=== PATIENT | female | born 1980 | race Hispanic/Latino ===

== ENCOUNTER 2021-08-06 07:37 | Day surgery (SDC) | payer BC ==
[2021-07-31 11:53] LABS: Urine Appearance CLOUDY (Clear); Urine Bilirubin NEGATIVE (Negative); Urine Blood NEGATIVE (Negative); Urine Color YELLOW (Yellow); Urine Glucose NEGATIVE (Negative); Urine Protein NEGATIVE (Negative); Urine Specific Gravity 1.015 (1.005-1.030); Urine Urobilinogen 0.2 mg/dL (0.2-1.0)
[2021-07-31 11:54] LABS: Absolute Lymphocytes (CBC) 2.9 K/uL (0.7-4.9); Hematocrit 41.8 % (36.0-45.0); Lymphocytes % 35.1 % (15.3-44.8); MPV 8.3 fL (7.6-11.3); RBC Red Blood Cell Count 4.67 M/uL (3.86-4.86)
[2021-07-31 11:57] LABS: Urine Microscopic Reflex NO UMIC
[2021-08-06] MEDS ORDERED: SCOPOLAMINE HYDROBROMIDE PATCH TD ONE (07:56)
[2021-08-06] MEDS ORDERED: Ringers Lactate 1,000 ML IV ONE ×2 (07:57→11:43)
[2021-08-06] MEDS: CEFAZOLIN/SWI 2gm 2 GM/20 ML SYR ONE ×3 (08:44→11:20)
[2021-08-06] MEDS ORDERED: ACETAMINOPHEN 500 MG TAB ONE (09:12)
[2021-08-06] MEDS ORDERED: CELECOXIB 100 MG CAPSULE ONE (09:17)
[2021-08-06] MEDS ORDERED: KETAMINE HCL 500 MG/5 ML VIAL ONE (09:27)
[2021-08-06] MEDS ORDERED: propofoL 200 MG/20 ML VIAL IV ONE (09:27)
[2021-08-06] MEDS ORDERED: MIDAZOLAM HCL 2 MG/2 ML INJ ONE (09:27)
[2021-08-06] MEDS ORDERED: dexAMETHasone 10 MG/ML VIAL ONE (09:27)
[2021-08-06] MEDS ORDERED: LIDOCAINE 1% MPF 5 ML VIAL ONE (09:27)
[2021-08-06] MEDS ORDERED: ONDANSETRON 4 MG/2 ML VIAL ONE (09:28)
[2021-08-06] MEDS ORDERED: FENTANYL CITR 250 MCG/5 ML ONE (09:28)
[2021-08-06] MEDS ORDERED: ROCURONIUM 50 MG/5 ML VIAL IV ONE ×2 (09:28→12:19)
[2021-08-06] MEDS ORDERED: NA CHLORIDE 0.9% 2,000 ML ONE (10:01)
[2021-08-06] MEDS ORDERED: LIDOCAINE 1% W/EPI 1:100,000 MDV 20 ML VIAL ONE (10:01)
[2021-08-06] MEDS ORDERED: NA CHLORIDE 0.9% 50 ML ONE ×2 (10:02→13:05)
[2021-08-06] MEDS ORDERED: CEFAZOLIN SODIUM 1 GM/VIAL ONE (10:08)
[2021-08-06] MEDS: BUPIVACAINE 0.25% PF 10 ML VIAL ONE ×2 (11:37→11:44)
[2021-08-06] MEDS: VASOPRESSIN 20 UNIT/ML VIAL ONE ×3 (11:44→13:50)
[2021-08-06] MEDS ORDERED: Phenylephrine HCl 10 MG/ML 1 ML VIAL ONE (12:35)
[2021-08-06] MEDS ORDERED: ETOMIDATE 20 MG/10 ML VIAL IV ONE (12:40)
[2021-08-06] MEDS: Ringers Lactate 1,000 ML IV ONE ×4 (13:17→14:37)
[2021-08-06] MEDS ORDERED: FENTANYL CITR 100 MCG/2 ML ONE (13:36)
[2021-08-06] MEDS ORDERED: GLYCOPYRROLATE 0.2 MG/ML SYR ONE ×2 (14:31→14:35)
[2021-08-06] MEDS ORDERED: MORPHINE 10 MG/ML VIAL ONE (15:08)
[2021-08-06] MEDS ORDERED: MORPHINE 2 MG/ML SYR IV PRN (15:52)
[2021-08-06] MEDS ORDERED: PROMETHAZINE INJ 25 MG/ML AMP IV PRN (15:52)
[2021-08-06] MEDS ORDERED: Ringers Lactate 1,000 ML IV SCH (16:00)
--- NOTE | 2021-08-06 16:02 | P.BOP ---
Preoperative diagnosis: Uterovaginal prolapse stage 2, rectocele, HANK Postoperative diagnosis: same and endometriosis, post enterocele, perineocele Primary procedure: TLH BS, endometriosis ablation, USLS colpopexy, cysto Secondary procedure: post wall+enterocele+perineocele repairs, Urethral bulking Orthotist Prosthetist: Marilee Dill Estimated blood loss: 50 Specimen: uterus tubes Findings: -1/_2/-4/5/thin/8/0/+1/-5 Anesthesia: General Complications: None Drain(s): Urinary catheter Implants: bulkamid Fluids & blood products: 3300 lr, UO 300 Transferred to: Recovery Room
[2021-08-06 18:38] VITALS: O2SAT 99
[2021-08-06] MEDS ORDERED: ATORVASTATIN 20 MG TAB PO SCH (21:00)
[2021-08-06] MEDS: ACETAMINOPHEN 500 MG TAB PO PRN (23:38)
[2021-08-07 07:02] LABS: Absolute Lymphocytes (CBC) 2.1 K/uL (0.7-4.9); Hematocrit 33.5 % (36.0-45.0); Lymphocytes % 14.4 % (15.3-44.8); MPV 8.5 fL (7.6-11.3); RBC Red Blood Cell Count 3.73 M/uL (3.86-4.86)
[2021-08-07] MEDS: ACETAMINOPHEN 500 MG TAB PO PRN (07:50)
[2021-08-07] MEDS ORDERED: CANNABIDIOL 100 MG/ML PO SCH (09:00)
[2021-08-07] MEDS ORDERED: VITAMIN D 1000 UNIT TAB PO SCH (09:00)
[2021-08-07] MEDS ORDERED: lisinopriL 10 MG TAB PO SCH (09:00)
[2021-08-07] MEDS ORDERED: GLYCOPYRROLATE 0.2 MG/ML SYR ONE (09:00)
[2021-08-07] MEDS ORDERED: hydroCHLOROthiazide 12.5 MG CAP PO SCH (09:00)
[2021-08-07] MEDS ORDERED: CHOLECALCIFEROL 2000 UNIT PO SCH (09:00)
[2021-08-07] MEDS ORDERED: ELDERBERRY FRUIT AND FLOWER PO SCH (09:00)
[2021-08-07 12:54] VITALS: BP 101/54; TEMP 97.6
--- NOTE | 2021-08-08 05:10 | OP ---
Date of Procedure: 08/06/2021 Surgeon: Renee Katz MD Access Representative: Marilee Treadwell. Preoperative Diagnoses: Uterovaginal prolapse stage II, rectocele, stress urinary incontinence. Postoperative Diagnoses: Uterovaginal prolapse stage II, rectocele, stress urinary incontinence, endometriosis, posterior enterocele, and perineocele. Procedures Performed: Total laparoscopic hysterectomy, bilateral salpingectomy, endometriosis ablati on with bipolar energy, uterosacral ligament suspension, colpopexy, cystoscopy, posterior wall repair , posterior enterocele repair, perineocele repair, and urethral bulking. Anesthesia: General endotracheal. Estimated Blood Loss: 50. Urine Output: 300. Specimens: Uterus and tubes. Complications: No complications. Drains: Piper catheter. Findings: POP-Q -1 -2 -4 5 10 8 0+ 1- 5. Endometriosis in the left lateral wall between the ureter and the left uterosacral ligament, just stage I. Uterosacral vaginal cuff closure was performed with 0 Vicryl sutures at both ends and 2-0 V-Loc in 2 layers. Then, uterosacral suspension is done with a 2-0 PDS, one stitch on each side. Enterocele, distal rectocele, and perineocele were all repaired w ith jamul tissue repair. Then, the pop-Q at the end of the procedure with -2 -3 -7 3.5 cm. Thick 8 cm, -3, -3, and 8. Description Of Procedure: After informed consent was verified, the patient was taken back to the OR, placed in a supine fashion on the operating table. 2 g of Ancef were given preop and SCD's were kim pedro pablo and started. Time-out was done. General anesthesia was given and patient placed in a dorsal lit hotomy position in Victorino stirru. The abdomen, vulva, vagina, and perineum were prepped and draped in a sterile fashion. Piper was placed to drain the bladder, attached for retrograde filling. A lar ge VCare introduced into the uterus and fixed in place. This area was draped. A 1 cm infraumbilical incision made with a scalpel using the open laparoscopy technique. Fascia was incised, tagged with 0 Vicryl sutures. Peritoneum entered. After adequate insufflation, site of entr y was checked and was unremarkable. The appendix and upper abdominal surface were all completely unr emarkable. Patient placed in Trendelenburg. Both ureters were traced from the pelvic brim to the ure teric tunnels and there was no distortion. There was endometriosis on the left side as discussed wit h the findings. Then, suprapubic to left and right lower quadrant port 5 mm were all placed under di rect vision. Marcaine was injected at all sites before incisions were made. Endometriosis was cauterized with the help of the bipolar device adequately. No other lesions on the left. The hysterectomy was done. Tube was removed with the LigaSure. Utero-ovarian ligament and round ligament were taken down. Broa d ligament opened up anteriorly and posteriorly, anteriorly raising the bladder flap, posteriorly all the way to the posterior aspect of the cuff. The broad ligament was taken down, skeletonizing the v essels on the left side. Vessels were cauterized with the bipolar LigaSure on opposite side. Simila r dissection was performed taking down the tube, utero-ovarian ligament, round ligament, opening the broad ligament connecting the bladder flap, and posteriorly taking the broad and round ligament and t aking the broad ligament and connecting it to the posterior dissection. The broad ligament was taken down to skeletonize the vessels. Anteriorly, the bladder was dissected opening the vesicovaginal space with a monopolar hook blade and dissecting it down inferiorly. After cauterizing the vessels on the right side and cardinal ligaments were taken down, they were cut and opposite side vessels that were cauterized were re-cauterized with the LigaSure and cut. The cardina l ligaments were also taken down. Circumferential colpotomy was performed with a monopolar hook blad e and the specimen pulled out through the vagina. Thorough irrigation and suction were performed. T here was a bleeder at the base of the uterine pedicle. This was carefully cauterized with the curved tip bipolar. After good hemostasis was achieved, 2 angle sutures were placed with 0 Vicryl and the rest of the cuff was closed in 2 layers with 2-0 V-LOC. After thorough irrigation and suction, ovari es were intact and well vascularized. Ureters were identified. The uterosacral ligaments were ident ified as well. Then, 2-0 PDS was taken and suture was placed through the uterosacral, held for retra ction and then good bite was taken after this in the distal uterosacral. Then, this was passed throu gh the posterior vaginal wall, anterior vaginal wall, and tied down. Similar dissection was performe d on the opposite side, exposing the uterosacral, then placing the suture through it and reattaching to the vaginal cuff at the apex. Once this was done, there was excellent suspension of the top. Cystoscopy was performed with a 17-Brazilian sheath with 30-degree lens and normal saline for distention medium. Jets of urine from both ureteric orifices and no evidence of any trauma to the bladder or foreign bod y. After visualizing the entire bladder, bladder was drained, Piper was replaced. All the incisions were closed. The fascia at the umbilicus and suprapubic sites were closed with 0 V icryl, skin incisions with 3-0 chromic subcuticular interrupted sutures. The bowel that was retracte d through the left upper quadrant was released and the stitch was hemostatic. Vaginal setup was done and then after assessing the posterior defect and realizing the perineocele, 2 Allis clamps were placed at the remnants of the hymen and the perineum was injected with dilute vaso pressin and lidocaine. Then, a triangular incision placed on the perineum. The skin exposed and the perineum was exposed on both sides to expose the deep transverse perineum and the scar. No sphincte roplasty. Sphincter appeared to be intact. Then, aster-shaped incision made in the distal half of the posterior wall. Once the skin was excis ed, the vaginal epithelium was excised. The fascia and the defect were exposed. There was a detachm ent of the right lateral rectovaginal septum to the side and to the perineum. The perineum was wide open with the perineocele. Then proximally, the vaginal epithelium and sub epithelium were raised, d issecting the underlying posterior rectovaginal fascia and the posterior enterocele. Once this was e xposed, the enterocele was closed with the help of 3-0 Monocryl in a pursestring fashion and then the rectovaginal septum was difficult to take it back all the way to the apex. On the left side, it see med to be running all the way from the apex down, so the right lateral avulsion was what was to be co nnected, so 2-0 Vicryl was taken and reattached to the sidewall after identifying the tear all the wa y down. Then, perineal body reconstruction was done from [id number] finding the deep transverse pe rineum, avoiding any levator plication, started the lower part of the perineum and brought all the wa y up to the labia majora. Then, once all these interrupted 3 and 2-0 Vicryl sutures were done after checking the rectovaginal exam, no sutures were placed through this. The posterior wall suture was a ttached to the perineal body. There was 1 area which appeared to have a slight defect which was very thin and most likely from her repair during her deliveries and the rectal wall was uninjured and the dissection did not go through the muscularis, however, two-layer closure was performed here before. I closed the rectovaginal septal defect. There was no evidence of any sutures when rectal exam was p erformed. Once this was reconstructed, the hymenal opening was brought down to 3.5 cm or close to 4 cm. I made sure that it was not too tight or pulled up. Then, vaginal epithelial reconstruction performed with out any further trimming with a continuous running 2-0 Vicryl suture, all the way to the level upon t he hymen and 3-0 Vicryl used subcutaneous and subcuticular on the perineum. Rectal exam was negative . The Piper was removed at this point. Bladder was drained. Then, a pediatric cystoscope was taken. We did prime the needle for the bulking agent. A 3 L bag wa s used for distention and just moderate dribble or slow flow. Cystoscope was introduced past the int ernal meatus. The needle was extended to 2 cm point into the bladder. Then, the whole thing was pul led back into the urethra, at least 1.5 cm. Then at the distal third of the urethra with the bevel fa cing the wall, entry was done at 5 o'clock, 1 o'clock, 11 o'clock, and 7 o'clock positions and 2.5 mL of the Bulkamid was injected in all 4 sites. There was good bulking down there. There was a small defect at 6 o'clock, but I did not put any additional material here, as there was bleeding from the s ite at 1 o'clock. A 12-Brazilian Piper was introduced, after the bulking was done. There was adequate hemostasis with some hematuria in the urine which was expected. Once this was completed, patient was recovered from anesthesia, vaginal packing was placed. She was recovered and taken to PACU in stable condition. EBL was 50. SK/MODL Voice ID: [id number] Report ID: [id number]
== END 2021-08-07 10:20 | disposition home or self-care (01) ==
LOC: OR 07:37 → 2ND-WC 16:08 → OR 08-07 10:20
PROVIDERS: ATTEND Obstetrics & Gynecology
PROC: 0UT74ZZ Resection of Bilateral Fallopian Tubes, Percutaneous Endoscopic Approach (ICD-10-PCS; 2021-08-06)
PROC: 0USG4ZZ Reposition Vagina, Percutaneous Endoscopic Approach (ICD-10-PCS; 2021-08-06)
PROC: 0WBF4ZZ Excision of Abdominal Wall, Percutaneous Endoscopic Approach (ICD-10-PCS; 2021-08-06)
PROC: 0TVD8ZZ Restriction of Urethra, Via Natural or Artificial Opening Endoscopic (ICD-10-PCS; 2021-08-06)
PROC: 0JQC0ZZ Repair Pelvic Region Subcutaneous Tissue and Fascia, Open Approach (ICD-10-PCS; 2021-08-06)
PROC: 0HQ9XZZ Repair Perineum Skin, External Approach (ICD-10-PCS; 2021-08-06)
PROC: 0UT94ZZ Resection of Uterus, Percutaneous Endoscopic Approach (ICD-10-PCS; principal; 2021-08-06 09:00)
DX: N81.2 Incomplete uterovaginal prolapse (principal); N81.6 Rectocele; N39.3 Stress incontinence (female) (male); F17.210 Nicotine dependence, cigarettes, uncomplicated; R15.9 Full incontinence of feces; Z20.822 Contact with and (suspected) exposure to COVID-19
CPT/HCPCS: 58571; 57425; 51715; 85025 ×2; 36415 ×2; 86900; 86850; 84703; 86901; 88305; 81003; 57250; 58662; U0003; J2704; J2370; J2250; J3010 ×2; J1100; J0690; J7120 ×5; J7030; J2405; L8606; 88307